=== PATIENT | male | born 1985 | race African-American/Black ===

== ENCOUNTER 2021-11-11 07:58 | Emergency (ER) | payer MEDICARE, OTHER ==
[~2021-11-11] VITALS: Ht 188 cm; Wt 119.0 kg
[~2021-11-11 07:58] MED LIST: DILANTIN
[2021-11-11] MEDS ORDERED: PHEN100C4 MT (08:57)
[2021-11-11 09:05] LABS: CHLORIDE 110 mEq/L (98-107)
[2021-11-11 09:08] LABS: BASOPHILS % 1.1 % (0.0-2.0); EOSINOPHILS % 1.3 % (0.0-5.0); HEMATOCRIT. 37.7 % (42.0-52.0); LYMPHOCYTES % 34.9 % (20.0-50.0); MEAN CORPUSCULAR HEMOGLOBIN 30.7 pg (28.0-32.0); MEAN CORPUSCULAR VOLUME 88.7 fL (80.0-94.0); MONOCYTES % 14.3 % (2.0-8.0); NEUTROPHILS % 48.4 % (40.0-76.0); RED BLOOD CELL COUNT 4.24 mill/uL (4.7-6.1); RED CELL DISTRIBUTION WIDTH 12.6 % (11.6-14.6)
[2021-11-11] MEDS ORDERED: PHENYTOIN SODIUM EXTENDED 100MG CAPSULE PO ONE (09:30)
[2021-11-11] MEDS ORDERED: PHEN100C4 PO (09:53)
[2021-11-11 10:15] VITALS: BP 135/81
== END 2021-11-11 10:30 | disposition home or self-care (01) ==
LOC: ER 07:58
DX: G40.901 Epilepsy, unspecified, not intractable, with status epilepticus (principal); F12.90 Cannabis use, unspecified, uncomplicated; Z88.0 Allergy status to penicillin; Z79.899 Other long term (current) drug therapy
CPT/HCPCS: 36415; 80053; 80185; 85025; 99283